=== PATIENT | male | born 1990 | race Asian ===

== ENCOUNTER 2017-04-08 15:11 | Inpatient (IN) | payer OTHER ==
[2017-04-08] MEDS ORDERED: SODIUM CHLORIDE 0.9% 50 ML 25 ML IV PRN (15:30)
[2017-04-08 16:09] LABS: BASOPHILS % (AUTO) 1 % (0-3); EOSINOPHILS % (AUTO) 1 % (0-9); HEMATOCRIT 46 % (39-53); MONOCYTES % (AUTO) 6.3 % (0-12); NEUTROPHILS % (AUTO) 74.3 % (37-80)
[2017-04-08 16:14] LABS: MEAN CORPUSCULAR VOLUME 77 fL (80-100)
[2017-04-08 16:29] LABS: ALBUMIN 3.7 gm/dl (3.4-5.0); CALCIUM 9.1 mg/dl (8.5-10.1)
[2017-04-08] MEDS: APAP/HYDROCODONE 325/5 TAB PO PRN ×2 (16:44→22:33)
[2017-04-08] MEDS: CEFAZOLIN (PREMIX) 1 GM 1 GM/50 ML SOL IV SCH ×2 (16:44→21:58)
[2017-04-08] MEDS: SODIUM CHLORIDE 0.45% 1000 ML 1,000 ML with POTASSIUM CHLORIDE 2 MEQ/ML 20 MEQ IV SCH (16:45)
[2017-04-08] MEDS: NOVOLOG FLEXPEN SC SCH ×2 (16:45→21:10)
[2017-04-08 16:53] LABS: HEMOGLOBIN A1C > 14.0 % (4.8-6.0)
[2017-04-09] MEDS: KETOROLAC TROMETHAMINE 30 MG/ML SOL IV PRN ×4 (01:05→20:32)
[2017-04-09] MEDS: CEFAZOLIN (PREMIX) 1 GM 1 GM/50 ML SOL IV SCH ×4 (03:54→21:47)
[2017-04-09] MEDS ORDERED: POTASSIUM CHLORIDE 2 MEQ/ML SOL IV ONE ×2 (03:58→16:48)
[2017-04-09] MEDS: SODIUM CHLORIDE 0.45% 1000 ML 1,000 ML with POTASSIUM CHLORIDE 2 MEQ/ML 20 MEQ IV SCH ×2 (04:58→17:05)
[2017-04-09] MEDS: APAP/HYDROCODONE 325/5 TAB PO PRN ×3 (06:09→18:32)
[2017-04-09 07:10] LABS: BASOPHILS % (AUTO) 1 % (0-3); EOSINOPHILS % (AUTO) 2 % (0-9); HEMATOCRIT 43 % (39-53); MEAN CORPUSCULAR HGB CONC 32.7 gm/dl (32.0-36.0); MONOCYTES % (AUTO) 6.2 % (0-12); NEUTROPHILS % (AUTO) 70.8 % (37-80)
[2017-04-09 07:11] LABS: MEAN CORPUSCULAR VOLUME 77 fL (80-100)
[2017-04-09 07:14] LABS: CALCIUM 8.2 mg/dl (8.5-10.1); POTASSIUM 4.1 mMol/L (3.5-5.1)
[2017-04-09] MEDS: NOVOLOG FLEXPEN SC SCH ×4 (08:06→20:30)
[2017-04-09] MEDS: ENOXAPARIN 40 MG SOL SC SCH (08:07)
[2017-04-09] MEDS ORDERED: SODIUM CHLORIDE 0.9% 1000ML 1,000 ML IV ONE (10:51)
[2017-04-10] MEDS: APAP/HYDROCODONE 325/5 TAB PO PRN ×4 (00:24→19:34)
[2017-04-10] MEDS: KETOROLAC TROMETHAMINE 30 MG/ML SOL IV PRN ×4 (02:31→21:47)
[2017-04-10] MEDS: CEFAZOLIN (PREMIX) 1 GM 1 GM/50 ML SOL IV SCH ×3 (04:01→16:28)
[2017-04-10] MEDS ORDERED: POTASSIUM CHLORIDE 2 MEQ/ML SOL IV ONE ×2 (04:44→18:57)
[2017-04-10] MEDS: SODIUM CHLORIDE 0.45% 1000 ML 1,000 ML with POTASSIUM CHLORIDE 2 MEQ/ML 20 MEQ IV SCH ×2 (05:06→18:59)
[2017-04-10 07:33] LABS: BASOPHILS % (AUTO) 1 % (0-3); EOSINOPHILS % (AUTO) 3 % (0-9); HEMATOCRIT 38 % (39-53); MEAN CORPUSCULAR HGB CONC 33.8 gm/dl (32.0-36.0); MONOCYTES % (AUTO) 7.4 % (0-12); NEUTROPHILS % (AUTO) 61.1 % (37-80)
[2017-04-10 07:36] LABS: MEAN CORPUSCULAR VOLUME 77 fL (80-100)
[2017-04-10 07:41] LABS: POTASSIUM 4.3 mMol/L (3.5-5.1)
[2017-04-10] MEDS ORDERED: LIDOCAINE 1% W/EPI MPF 10 ML SOL INFIL ONE (07:53)
[2017-04-10] MEDS ORDERED: LIDOCAINE HCL 1% MPF SOL ONE ×2 (07:58→13:11)
[2017-04-10] MEDS ORDERED: MORPHINE SULFATE 10 MG/ML SOL ONE (08:09)
[2017-04-10] MEDS ORDERED: MORPHINE SULFATE 10 MG/ML SOL IV STA (08:21)
[2017-04-10] MEDS: NOVOLOG FLEXPEN SC SCH ×4 (08:53→21:42)
[2017-04-10] MEDS: ENOXAPARIN 40 MG SOL SC SCH (08:54)
[2017-04-10] MEDS: SODIUM CHLORIDE 0.9% FLUSH 10 ML SOL IV PRN (09:37)
[2017-04-10] MEDS ORDERED: LEVOFLOXACIN 500 MG (PREMIX) 500 MG/100 ML SOL IV ONE (14:45)
[2017-04-11] MEDS: APAP/HYDROCODONE 325/5 TAB PO PRN ×3 (01:47→20:33)
[2017-04-11] MEDS: KETOROLAC TROMETHAMINE 30 MG/ML SOL IV PRN ×3 (05:10→22:57)
[2017-04-11] MEDS ORDERED: POTASSIUM CHLORIDE 2 MEQ/ML SOL IV ONE (05:14)
[2017-04-11] MEDS: SODIUM CHLORIDE 0.45% 1000 ML 1,000 ML with POTASSIUM CHLORIDE 2 MEQ/ML 20 MEQ IV SCH ×2 (05:18→18:26)
[2017-04-11] MEDS ORDERED: PHARMACOKINETICS 1 MISC PRN (08:45)
[2017-04-11] MEDS: ENOXAPARIN 40 MG SOL SC SCH (08:48)
[2017-04-11] MEDS: NOVOLOG FLEXPEN SC SCH ×4 (08:48→20:43)
[2017-04-11] MEDS: METFORMIN HYDROCHLORIDE 500 MG TAB PO SCH ×2 (10:41→17:30)
[2017-04-11] MEDS: GLIMEPIRIDE 2 MG TAB PO SCH (10:41)
[2017-04-11] MEDS ORDERED: SODIUM CHLORIDE 0.9% 500 ML 500 ML IV ONE ×2 (10:59→20:02)
[2017-04-11] MEDS ORDERED: VANCOMYCIN HYDROCHLORIDE 500 MG PDS IV ONE ×2 (10:59→20:02)
[2017-04-11] MEDS: VANCOMYCIN HCL 500 MG PDS 2,000 MG in SODIUM CHLORIDE 0.9% 500 ML 500 ML IV SCH ×2 (11:09→20:34)
[2017-04-11] MEDS ORDERED: HEPARIN 500 Unit PRE-FILL 100 U/ML SOL IV PRN (13:00)
[2017-04-11] MEDS: SODIUM CHLORIDE 0.9% FLUSH 10 ML SOL IV PRN ×2 (20:38→22:57)
[2017-04-12] MEDS: APAP/HYDROCODONE 325/5 TAB PO PRN (04:55)
[2017-04-12] MEDS: NOVOLOG FLEXPEN SC SCH (08:37)
[2017-04-12] MEDS: ENOXAPARIN 40 MG SOL SC SCH (09:10)
[2017-04-12] MEDS: GLIMEPIRIDE 2 MG TAB PO SCH (09:11)
[2017-04-12] MEDS: METFORMIN HYDROCHLORIDE 500 MG TAB PO SCH (09:11)
[2017-04-12] MEDS: VANCOMYCIN HCL 500 MG PDS 2,000 MG in SODIUM CHLORIDE 0.9% 500 ML 500 ML IV SCH (09:11)
[2017-04-12] MEDS: SODIUM CHLORIDE 0.9% FLUSH 10 ML SOL IV PRN (09:15)
[2017-04-12 09:31] VITALS: BP 150/94; PULSE 69; RESP 16; TEMP 96; O2SAT 98
== END 2017-04-12 12:00 | disposition home or self-care (01) | DRG 603 ==
LOC: ACUTE CARE 15:17
PROVIDERS: ADMIT Family Medicine; ATTEND Family Medicine
PROC: 0H90XZZ Drainage of Scalp Skin, External Approach (ICD-10-PCS; principal; 2017-04-10)
DX: L03.811 Cellulitis of head [any part, except face] (principal); R34 Anuria and oliguria; Z68.41 Body mass index [BMI] 40.0-44.9, adult; B95.62 Methicillin resistant Staphylococcus aureus infection as the cause of diseases classified elsewhere; E11.9 Type 2 diabetes mellitus without complications; E86.0 Dehydration; L02.811 Cutaneous abscess of head [any part, except face]
CPT/HCPCS: 36415; 70487; 71010; 80048; 80053; 82962; 83036; 85025; 87040; 87077; 87186; 99070; 99211; J0690; J1650; J1885; J1956; J2270; J3370; J3480; Q9967; A6232; A6402; A6446; J1815; J2001